=== PATIENT | male | born 2000 | race Two or more races ===

== ENCOUNTER 2023-07-23 04:15 | Emergency (ER) | payer OTHER ==
[~2023-07-23] VITALS: Ht 180.3 cm; Wt 74.4 kg
[2023-07-23 04:49] VITALS: BP 107/63; TEMP 98.2; O2SAT 100
[2023-07-23] MEDS ORDERED: IV NS 0.9% 1,000 ML BAG IV ONE (05:00)
== END 2023-07-23 04:49 | disposition left against medical advice (07) ==
LOC: ER 04:30 → EDBD 04:30 → ER 04:49
DX: F10.129 Alcohol abuse with intoxication, unspecified (principal); R73.9 Hyperglycemia, unspecified; Y90.9 Presence of alcohol in blood, level not specified